=== PATIENT | male | born 2000 | race Caucasian/White ===

== ENCOUNTER 2023-02-11 16:25 | Emergency (ER) | payer MEDICAID, SELFPAY ==
[2023-02-11 16:28] VITALS: BP 133/79; PULSE 95; RESP 16; TEMP 36.9; O2SAT 96; BMI 24.9
--- NOTE | 2023-02-11 17:27 | EKG12_ITS ---
Test Reason : SYNCOPE Blood Pressure : / mmHG Vent. Rate : 079 BPM Atrial Rate : 079 BPM P-R Int : 148 ms QRS Dur : 096 ms QT Int : 346 ms P-R-T Axes : 000 143 148 degrees QTc Int : 396 ms Normal sinus rhythm Right axis deviation Nonspecific ST and T wave abnormality Abnormal ECG Confirmed by ARABELLA CRUZ, NILO ([id number]), online editor DA WHITE ([id number]) on 02/14/2023 1:00:41 PM Referred By: Confirmed By:NILO BELL MD
--- NOTE | 2023-02-11 17:33 | CT_ITS ---
STUDY: CT BRAIN WITHOUT CONTRAST REASON FOR EXAM: Male, 22 years old. Trauma RADIATION DOSAGE (If Supplied By Facility): CTDIvol = ( 44.99 ) mGy, DLP = ( 745.49 ) mGycm TECHNIQUE: Transaxial CT imaging of the brain was performed without administration of intravenous contrast material. Individualized dose optimization techniques were used for this CT. COMPARISON: No relevant priors. FINDINGS: Normal soft tissue structures. Normal calvarium. Normal size ventricles and extra-axial spaces for the patient''s age. Normal white matter tracts of the cerebral hemispheres. Normal basal ganglia and thalami. Normal brainstem. Normal cerebellum. There is no intracranial hemorrhage. There are no findings of an acute ischemic infarction. Normal visualized paranasal sinuses. CT/Brain/Head without Contrast IMPRESSION: Normal unenhanced CT scan of the brain. Electronically Signed: Fernando Pedroza MD at 18:28 EDT ,
--- NOTE | 2023-02-11 17:33 | CT_ITS ---
STUDY: CT CHEST, ABDOMEN T PELVIS WITH CONTRAST REASON FOR EXAM: Male, 22 years old. Trauma RADIATION DOSAGE (If Supplied By Facility): CTDIvol = ( 11.87 ) mGy, DLP = ( 829.31 ) mGycm TECHNIQUE: Transaxial imaging was performed following intravenous administration of IV 100mL Isovue-300. Multiplanar coronal and sagittal images were reformatted. Individualized dose optimization techniques were used for this CT. COMPARISON: No relevant priors. FINDINGS: CHEST The lungs are normal. There is no demonstrated pleural abnormality. Normal heart and pericardium. Normal mediastinum. Normal hilar regions. Normal unenhanced pulmonary arteries. Normal aorta arch and descending thoracic aorta. Normal osseous structures. There is no demonstrated abnormality of the visualized upper abdomen. ABDOMEN The visualized lung bases are unremarkable. The visualized portions of the heart are within normal limits. Normal liver. Normal gallbladder and extrahepatic biliary system. Normal spleen. Normal pancreas. Normal bilateral adrenal glands. Normal right kidney. Normal left kidney. Normal visualized stomach. Normal small intestine. Normal colon. There is non-visualization of the appendix. Normal abdominal aorta. Normal inferior vena cava. Normal retroperitoneum. Normal abdominal wall. Normal osseous structures. PELVIS There is moderate distention of the urinary bladder. Normal visualized small intestine. Normal visualized colon. There is no pelvic fluid. There is no pelvic lymphadenopathy or mass lesion. Normal visualized pelvic arteries. Normal abdominal wall. Normal osseous structures. CT/CT Chest, Abd, Pel w/Contrast IMPRESSION: Normal enhanced CT chest, abdomen T pelvis examination. No fracture. No solid organ injury. Electronically Signed: Fernando Pedroza MD at 18:44 EDT ,
--- NOTE | 2023-02-11 17:33 | CT_ITS ---
STUDY: CT CERVICAL SPINE WITHOUT CONTRAST REASON FOR EXAM: Male, 22 years old. Trauma RADIATION DOSAGE (If Supplied By Facility): CTDIvol = ( 16.63 ) mGy, DLP = ( 256.29 ) mGycm TECHNIQUE: High resolution transaxial imaging was performed without contrast material. Sagittal and coronal images were reconstructed. Individualized dose optimization techniques were used for this CT. COMPARISON: None FINDINGS: Normal craniovertebral junction. Normal anterior atlantoaxial articulation. Normal odontoid process. Normal cervical lordosis. Normal vertebral bodies and posterior osseous elements. There is no acute fracture. C2-3: Normal endplates. Normal disc height and morphology. Normal central canal and intervertebral neuroforamina. C3-4: Mild spurring. Normal central canal and intervertebral neuroforamina. C4-5: Normal endplates. Normal disc height and morphology. Normal central canal and intervertebral neuroforamina. C5-6: Normal endplates. Normal disc height and morphology. Normal central canal and intervertebral neuroforamina. C6-7: Normal endplates. Normal disc height and morphology. Normal central canal and intervertebral neuroforamina. C7-T1: Normal endplates. Normal disc height and morphology. Normal central canal and intervertebral neuroforamina. Normal visualized soft tissue structures. CT/Spine Cervical without Contras IMPRESSION: Mild spurring at C3-4. No fracture. Electronically Signed: Fernando Pedroza MD at 18:34 EDT ,
--- NOTE | 2023-02-11 17:38 | ED.RN ---
VERBAL CONSENT TO TALK W NABOR MCLEOD. UPDATE GIVEN
[2023-02-11] MEDS: Ondansetron 4 MG/2 ML Vial IV (17:42)
[2023-02-11] MEDS: 0.9% Normal Saline 1,000 ML 1000 ML IV ×2 (17:42→18:31)
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
[2023-02-11 18:11] LABS: Absolute Lymphocyte Count 2.03 X10^3/uL (0.83-4.51); Absolute Neutrophil Count 10.9 X10^3/uL (2.0-7.7); Basophil# 0.05 X10^3/uL; Basophil% 0.3 % (0-1); Eosinophil# 0.28 X10^3/uL; Eosinophils% 1.9 % (0-5); Hematocrit 42.4 % (40-54); Hemoglobin 14.9 g/dL (13.0-16.5); Lymphocyte # 2.03 X10^3/ul (0.83-4.51); Lymphocyte % 14.1 % (19-41); Mean Corp Hgb Conc 35.1 g/dL (32-36); Mean Corpuscular Hgb 30.5 pg (27.0-32.0); Mean Corpuscular Volume 86.7 fL (80-94); Mean Platelet Vol. 10.2 fl (6.2-12.0); Monocyte# 1.16 X10^3/uL; NRBC Flagged by Analyzer 0 % (0-5); Neutrophil # 10.87 X10^3/uL (2.7-7.7); Neutrophil % 75.4 % (47-70); Platelet Count 249 K/mm3 (150-450); RBC Distribution Width CV 12.8 % (11.6-14.6); RBC Distribution Width SD 40.3 fl (35.1-43.9); Red Blood Count 4.89 M/mm3 (4.6-6.2); White Blood Count 14.4 K/mm3 (4.4-11.0)
[2023-02-11 18:17] VITALS: BP 138/55; PULSE 82; RESP 19; O2SAT 99
[2023-02-11 18:48] LABS: ALB/GLOB Ratio 1.1 RATIO (0.9-2.4); AST(SGOT) 19 U/L (15-37); Alanine Aminotransfer ALT/SGPT 21 U/L (16-61); Albumin, Serum 4.3 g/dL (3.2-5.0); Alkaline Phosphatase 67 U/L (45-117); Anion Gap 9 (5-15); BUN 13 mg/dL (7-18); BUN/Creat Ratio 13.2 RATIO (10-20); Calcium,Total 9.1 mg/dL (8.5-10.1); Chloride 104 mmol/L (98-107); Creatinine, Serum 0.98 mg/dL (0.70-1.30); EST Glomerular Filtration Rate 103 mL/min (>60); Est Glom Filt Rate - Afr Amer 125 mL/min (>60); Estimated Creatinine Clearance 100.68 ml/min; Globulin 3.8 g/dL (2.2-4.2); Glucose 82 mg/dL (74-106); Potassium 3.3 mmol/L (3.5-5.1); Protein, Total 8.1 g/dL (6.4-8.2); Sodium Level 138 mmol/L (136-145); Troponin-I HS 3 pg/mL (3.0-78.0)
[2023-02-11 18:49] LABS: Alcohol, Blood (Medical)-Serum < 3.0 mg/dL
[2023-02-11 19:00] VITALS: BP 131/61; PULSE 84; RESP 13; O2SAT 96
[2023-02-11 20:09] VITALS: BP 143/69; PULSE 84; RESP 13; O2SAT 96
== END 2023-02-11 20:53 | disposition home or self-care (01) ==
PROVIDERS: Emergency Provider Student in an Organized Health Care Education/Training Program; Visit Provider Student in an Organized Health Care Education/Training Program
DX: R11.2 Nausea with vomiting, unspecified (principal); V44.5XXA Car driver injured in collision with heavy transport vehicle or bus in traffic accident, initial encounter; Y92.410 Unspecified street and highway as the place of occurrence of the external cause
CPT/HCPCS: 70450; 71260; 72125; 74177; 80053; 82077; 84484; 85025; 93005; 96361; 96374; 99284; J7030; Q9967; J2405